=== PATIENT | female | born 1965 | race African-American/Black ===

== ENCOUNTER 2022-06-21 06:14 | Day surgery (SDC) | payer MEDICAID ==
[~2022-06-21] VITALS: Ht 162.6 cm; Wt 83.9 kg
[~2022-06-21 06:14] MED LIST: ALBU108A5 IN; CAR3125T PO; EMPA1TAB PO; ESOM20CA PO; FURO20TA3 PO; HYDR-4902 PO; HYDR50CA PO; IPRA0.00 IN; LAMO100T44 PO; METO-6 PO; MIRT1TAB38 PO; NALO1TAB4 PO; NITR0.4S29 SL; POTA10TA51 PO; SACU1TAB7 PO; SPIR25TA PO; TRAZ50TA2 PO
[2022-06-21] MEDS ORDERED: VERAPAMIL 2.5MG/ML INJ 2ML VIAL IV ONE (07:30)
[2022-06-21] MEDS ORDERED: HEPARIN SODIUM (PORCINE) 5000 UNITS/ML 1ML VIAL ONE (07:30)
[2022-06-21] MEDS ORDERED: ANGIOMAX 250 MG VIAL IV ONE (07:30)
[2022-06-21] MEDS ORDERED: fentaNYL CITRATE 100 MCG/2 ML VL ONE (07:31)
[2022-06-21] MEDS ORDERED: IODIXANOL 320MG/ML 100ML BTL IV ONE (07:31)
[2022-06-21] MEDS ORDERED: SODIUM CHL 0.9% 50 ML ONE (07:31)
[2022-06-21] MEDS ORDERED: LIDOCAINE 2%HCL (LOCAL ANESTH.) INJ 20ML MDV ONE (07:31)
[2022-06-21] MEDS ORDERED: MIDAZOLAM HCL 2MG/2ML 2ml VIAL (1mg/ml) ONE (07:31)
[2022-06-21] MEDS ORDERED: TICAGRELOR 90 MG TAB ONE (08:08)
[2022-06-21] MEDS ORDERED: ASPirin 325 MG TAB ONE (08:08)
== END 2022-06-21 12:28 | disposition home or self-care (01) ==
LOC: CATH 06:14
PROVIDERS: ATTEND Internal Medicine Cardiovascular Disease
DX: R06.02 Shortness of breath (principal); I25.10 Atherosclerotic heart disease of native coronary artery without angina pectoris; F17.200 Nicotine dependence, unspecified, uncomplicated; Z79.02 Long term (current) use of antithrombotics/antiplatelets; Z20.822 Contact with and (suspected) exposure to COVID-19
CPT/HCPCS: 93458; C1726; C1769; C1874; C1887; C1894; C9600; J0583; J1644; J2250; J3010; Q9967; U0003; 99152; 99153